=== PATIENT | female | born 1995 | race Caucasian/White ===

== ENCOUNTER 2024-09-19 04:16 | Emergency (ER) | payer MEDICAID | END 2024-09-19 04:44 | disposition left against medical advice (07) | LOC: ER 04:31 | DX: O46.90 Antepartum hemorrhage, unspecified, unspecified trimester (principal); Z53.21 Procedure and treatment not carried out due to patient leaving prior to being seen by health care provider; Z3A.00 Weeks of gestation of pregnancy not specified ==